=== PATIENT | male | born 1970 | race Caucasian/White ===

== ENCOUNTER → 2017-04-27 | Outpatient (CLI) | payer BC ==
[~2017-04-27] MED LIST: CIPRO 500MG TA500 MG PO; FLOMAX 0.4MG C0.4 MG PO
[2017-04-27 16:12] LABS: HEMOGLOBIN 15.2 g/dL (14.1-18.0); LYMPH # 1.7 K/mm3 (0.7-4.5); LYMPH % 22.3 % (10-50)
== END ==
LOC: LAB 16:00
PROVIDERS: Surgery
DX: K80.20 Calculus of gallbladder without cholecystitis without obstruction (principal)